=== PATIENT | female | born 1970 | race Caucasian/White ===

== ENCOUNTER 2017-05-31 14:35 | Emergency (ER) | payer OTHER ==
[~2017-05-31] VITALS: Ht 165.1 cm; Wt 73.7 kg
[2017-05-31] MEDS ORDERED: FAMOTIDINE 20 MG/2 ML IVPush ONE (15:00)
[2017-05-31] MEDS ORDERED: DIPHENHYDRAMINE 50 MG/ML, 1ML IVPush ONE (15:00)
[2017-05-31] MEDS ORDERED: methylPREDNISolone SOD SUCC 125 MG/2 ML IVPush ONE (15:00)
[2017-05-31] MEDS ORDERED: SODIUM CHLORIDE FLUSH 10ML SYR IVF ONE (15:00)
[2017-05-31] MEDS ORDERED: ONDANSETRON 2MG/ML, 2ML IVPush ONE (15:00)
[2017-05-31] MEDS ORDERED: methylPREDNISolone SOD SUCC 125 MG/2 ML ONE (15:11)
[2017-05-31] MEDS ORDERED: DIPHENHYDRAMINE 50 MG/ML, 1ML ONE (15:12)
[2017-05-31] MEDS ORDERED: ONDANSETRON 2MG/ML, 2ML ONE (15:12)
[2017-05-31] MEDS ORDERED: FAMOTIDINE 20 MG/2 ML ONE (15:12)
[2017-05-31 16:04] VITALS: BP 141/82
== END 2017-05-31 16:23 | disposition home or self-care (01) ==
LOC: ED 16:01
DX: F41.9 Anxiety disorder, unspecified (principal); R06.00 Dyspnea, unspecified; T43.215A Adverse effect of selective serotonin and norepinephrine reuptake inhibitors, initial encounter; Y92.89 Other specified places as the place of occurrence of the external cause
CPT/HCPCS: 96374; 96375; 99284; J1200; J2405; J2930; S0028

== ENCOUNTER 2017-06-29 11:31 | Inpatient (IN) | payer OTHER ==
[~2017-06-29] VITALS: Ht 165.1 cm; Wt 71.5 kg
[2017-06-29] MEDS ORDERED: ALPR0.25 PO (13:14)
[2017-06-29] MEDS ORDERED: ONDA4TAB10 PO (13:14)
[2017-06-29] MEDS ORDERED: PROP10TA PO (13:14)
[2017-06-29] MEDS ORDERED: SODIUM CHLORIDE FLUSH 10ML SYR IVF ONE (13:30)
[2017-06-29] MEDS ORDERED: ONDANSETRON 2MG/ML, 2ML IVPush ONE (13:30)
[2017-06-29] MEDS ORDERED: SODIUM CHLORIDE 0.9% 1,000ML IVBOLUS ONE (13:30)
[2017-06-29] MEDS ORDERED: FAMOTIDINE 20 MG/2 ML IVP ONE (13:30)
[2017-06-29] MEDS ORDERED: FAMOTIDINE 20 MG/2 ML ONE (13:45)
[2017-06-29] MEDS ORDERED: ONDANSETRON 2MG/ML, 2ML ONE (13:45)
[2017-06-29 14:11] LABS: HEMATOCRIT 47.4 % (34.6-47.8); HEMOGLOBIN 16.7 g/dL (11.7-16.4); WHITE BLOOD COUNT 11.1 x10^3/uL (3.4-10)
[2017-06-29 14:23] LABS: BLOOD UREA NITROGEN 12 mg/dL (7-18)
[2017-06-29 14:26] LABS: ASPARTATE AMINO TRANSFERASE 36 U/L (15-37)
[2017-06-29] MEDS ORDERED: POTASSIUM CHLORIDE 40 MEQ in SODIUM CHLORIDE 0.9% 1,000 ML IV ONE (15:25)
[2017-06-29] MEDS ORDERED: NS + 40MEQ KCL 1,000 ML IV ONE (15:36)
[2017-06-29] MEDS ORDERED: SODIUM CHLORIDE FLUSH 10ML SYR IVF PRN (16:00)
[2017-06-29] MEDS: NS + 20MEQ KCL 1,000 ML IV SCH ×2 (16:10→20:05)
[2017-06-29] MEDS ORDERED: LABETALOL 5MG/ML, 20ML IVPush PRN (16:30)
[2017-06-29] MEDS ORDERED: morphine SULFATE 10 MG/ML, 1ML IVPush PRN (16:30)
[2017-06-29] MEDS ORDERED: HYDROcodone/APAP 5/325 TABLET PO PRN (16:30)
[2017-06-29] MEDS ORDERED: BISACODYL 10 MG SUPP PR PRN (16:30)
[2017-06-29] MEDS ORDERED: ONDANSETRON 2MG/ML, 2ML IVPush PRN (16:30)
[2017-06-29] MEDS ORDERED: DOCUSATE 100 MG CAPSULE PO PRN (16:30)
[2017-06-29] MEDS ORDERED: ACETAMINOPHEN 325 MG TABLET PO PRN (16:30)
[2017-06-29] MEDS: ENOXAPARIN 40 MG/0.4 ML SQ SCH (16:30)
[2017-06-29] MEDS ORDERED: POLYETHYLENE GLYCOL 17 GM PACKET PO PRN (16:30)
[2017-06-29] MEDS: POTASSIUM CHLORIDE 20 MEQ PACKET PO SCH ×2 (17:00→18:31)
[2017-06-29 17:30] VITALS: BP 146/86
[2017-06-29 19:19] VITALS: BP 137/84
[2017-06-29] MEDS: PROMETHAZINE 25 MG/ML, 1ML IM PRN ×2 (19:38→23:36)
[2017-06-30] MEDS ORDERED: DIPHENHYDRAMINE 25 MG CAPSULE PO PRN (00:30)
[2017-06-30 01:20] VITALS: BP 133/76
[2017-06-30] MEDS: NS + 20MEQ KCL 1,000 ML IV SCH (02:46)
[2017-06-30 04:48] LABS: HEMATOCRIT 42.2 % (34.6-47.8); HEMOGLOBIN 14.7 g/dL (11.7-16.4); WHITE BLOOD COUNT 9.9 x10^3/uL (3.4-10)
[2017-06-30 04:55] LABS: BLOOD UREA NITROGEN 7 mg/dL (7-18)
[2017-06-30 05:00] LABS: ASPARTATE AMINO TRANSFERASE 43 U/L (15-37)
[2017-06-30 07:59] VITALS: BP 150/74
[2017-06-30] MEDS: POTASSIUM CHLORIDE 20 MEQ PACKET PO SCH ×3 (08:57→17:45)
[2017-06-30] MEDS: PROPRANOLOL 10 MG TABLET PO SCH (08:58)
[2017-06-30] MEDS: PROMETHAZINE 25 MG/ML, 1ML IM PRN (13:30)
[2017-06-30 13:42] VITALS: BP 132/85
[2017-06-30] MEDS: ENOXAPARIN 40 MG/0.4 ML SQ SCH (16:30)
[2017-06-30 18:33] VITALS: BP 133/82
[2017-07-01 00:53] VITALS: BP 111/69
[2017-07-01 08:05] VITALS: BP 113/70
[2017-07-01] MEDS: POTASSIUM CHLORIDE 20 MEQ PACKET PO SCH ×2 (08:37→11:57)
[2017-07-01] MEDS: PROPRANOLOL 10 MG TABLET PO SCH (08:38)
[2017-07-01 13:31] VITALS: BP 129/84
== END 2017-07-01 16:15 | disposition home or self-care (01) | DRG 392 ==
LOC: ED 14:44 → EDIP 15:31 → UNDOADMIN 16:08 → 3NE 17:18 → DCLOUNGE 07-01 16:08
PROVIDERS: ADMIT Hospitalist; ATTEND Internal Medicine
DX: A08.4 Viral intestinal infection, unspecified (principal); I11.9 Hypertensive heart disease without heart failure; D75.1 Secondary polycythemia; E87.1 Hypo-osmolality and hyponatremia; E87.6 Hypokalemia; E86.0 Dehydration; Z82.49 Family history of ischemic heart disease and other diseases of the circulatory system; E80.6 Other disorders of bilirubin metabolism; Z88.8 Allergy status to other drugs, medicaments and biological substances; R73.9 Hyperglycemia, unspecified
CPT/HCPCS: 36415; 74020; 80053; 81003; 83690; 85025; 87046; 89055; 96361; 96365; 96375; J2405; J2550; J3480; J7030; Q0163; S0028

== ENCOUNTER 2018-08-06 09:31 | Emergency (ER) | payer OTHER ==
[~2018-08-06] VITALS: Ht 165.1 cm; Wt 77.0 kg
[~2018-08-06 09:31] MED LIST: ALPR0.25 PO; ONDA4TAB10 PO; PROP10TA PO
[2018-08-06] MEDS ORDERED: MAALOX/HYOSCYAMINE/LIDOCAINE 45 ML BTL PO ONE (10:30)
--- NOTE | 2018-08-06 10:30 | NUR ---
PT C/O EPIGASTRIC ABD PAIN FOR 4 DAYS WITH N/V. PT REPORTS BEING A DRINKER AND DRINKING HEAVILY OF LATE.
[2018-08-06] MEDS ORDERED: MAALOX/HYOSCYAMINE/LIDOCAINE 45 ML BTL ONE (10:42)
[2018-08-06 11:25] LABS: BASOPHILS # (AUTO) 0.01 x10^3/uL (0-0.1); BASOPHILS % (AUTO) 1 % (0-1); EOSINOPHILS # (AUTO) 0.11 x10^3/uL (0-0.4); EOSINOPHILS % (AUTO) 4 % (1-7); LYMPHOCYTES # (AUTO) 1.18 x10^3/uL (1-3.4); LYMPHOCYTES % (AUTO) 38 % (22-44); MD NO; MEAN CORPUSCULAR HEMOGLOBIN 30.3 pg (27.0-34.8); MEAN CORPUSCULAR HGB CONC 34.1 g/dL (32.4-35.8); MEAN CORPUSCULAR VOLUME 88.9 fL (80-100); MEAN PLATELET VOLUME 8.5 fL (7.4-10.4); MONOCYTES # (AUTO) 0.24 x10^3/uL (0.2-0.8); MONOCYTES % (AUTO) 8 % (2-9); NEUTROPHILS # (AUTO) 1.57 x10^3/uL (1.8-6.8); NEUTROPHILS % (AUTO) 50 % (42-75); PLATELET COUNT 149 x10^3/uL (130-400); RED BLOOD COUNT 5.07 x10^6/uL (3.82-5.3); RED CELL DISTRIBUTION WIDTH 13.6 % (9.6-15.2)
[2018-08-06 11:29] LABS: ALBUMIN 3.8 g/dL (3.4-5.0); ANION GAP 8 mmol/L (5-15); CALCIUM 8.2 mg/dL (8.5-10.1); CHLORIDE 105 mmol/L (98-107)
[2018-08-06 11:34] LABS: ALANINE AMINOTRANSFERASE 112 U/L (12-78); ALKALINE PHOSPHATASE 83 U/L (45-117); BILIRUBIN,TOTAL 0.6 mg/dL (0.2-1.0); TOTAL PROTEIN 7.6 g/dL (6.4-8.2)
--- NOTE | 2018-08-06 11:44 | NUR ---
UA COLLECTED AND SENT TO THE LAB.
[2018-08-06 11:49] LABS: MICROSCOPIC NOT IND
[2018-08-06 11:56] LABS: CULTURE INDICATED? NO
[2018-08-06 13:14] VITALS: BP 145/92
== END 2018-08-06 13:17 | disposition home or self-care (01) ==
LOC: ED 13:10
DX: K29.20 Alcoholic gastritis without bleeding (principal); R94.5 Abnormal results of liver function studies; F32.9 Major depressive disorder, single episode, unspecified; F41.9 Anxiety disorder, unspecified; Z90.710 Acquired absence of both cervix and uterus
CPT/HCPCS: 36415; 74021; 76700; 80053; 81003; 83690; 85025; 93005; 99284

== ENCOUNTER → 2020-04-26 | Outpatient (CLI) | payer OTHER ==
[~2020-04-26] MED LIST changes: +ALPR0.5T7 PO; +ATOR40TA78 PO; +CEFD300C37 PO; +DOXE10CA PO; +FLUO20CA23 PO; +FLUO40CA2 PO; +GEMF600T8 PO; +MULT-658 PO; +ONDA4TAB13 SL; +ONDA4TAB7 PO; +OXYC5TAB3 PO; -PROP10TA PO; +PROP10TA16 PO; +PROP20TA PO
[2020-04-26 15:49] LABS: BASOPHILS # (AUTO) 0.01 x10^3/uL (0-0.1); BASOPHILS % (AUTO) 0 % (0-1); EOSINOPHILS # (AUTO) 0.03 x10^3/uL (0-0.4); EOSINOPHILS % (AUTO) 1 % (1-7); LYMPHOCYTES # (AUTO) 1.51 x10^3/uL (1-3.4); LYMPHOCYTES % (AUTO) 26 % (22-44); MD NO; MEAN CORPUSCULAR HEMOGLOBIN 27.6 pg (27.0-34.8); MEAN CORPUSCULAR HGB CONC 32.6 g/dL (32.4-35.8); MEAN CORPUSCULAR VOLUME 84.7 fL (80-100); MEAN PLATELET VOLUME 9.3 fL (7.4-10.4); MONOCYTES % (AUTO) 5 % (2-9); NEUTROPHILS # (AUTO) 3.88 x10^3/uL (1.8-6.8); NEUTROPHILS % (AUTO) 68 % (42-75); PLATELET COUNT 199 x10^3/uL (130-400); RED BLOOD COUNT 4.73 x10^6/uL (3.82-5.3); RED CELL DISTRIBUTION WIDTH 13.1 % (9.6-15.2)
[2020-04-26 15:59] LABS: ALBUMIN 3.7 g/dL (3.4-5.0); ANION GAP 7 mmol/L (5-15); CHLORIDE 105 mmol/L (98-107)
[2020-04-26 16:03] LABS: ALANINE AMINOTRANSFERASE 20 U/L (12-78); ALKALINE PHOSPHATASE 63 U/L (45-117); BILIRUBIN,TOTAL 0.7 mg/dL (0.2-1.0); CREATININE 0.77 mg/dL (0.55-1.02); TOTAL PROTEIN 7.2 g/dL (6.4-8.2)
[2020-04-26 16:26] LABS: INTERNATIONAL NORMALIZED RATIO 0.97 (0.93-1.1)
== END | disposition home or self-care (01) ==
LOC: STAR 14:33
PROVIDERS: ATTEND Obstetrics & Gynecology
DX: Z01.818 Encounter for other preprocedural examination (principal); Z20.828 Contact with and (suspected) exposure to other viral communicable diseases; R19.09 Other intra-abdominal and pelvic swelling, mass and lump; R10.9 Unspecified abdominal pain
CPT/HCPCS: 36415; 71046; 80053; 85025; 85610; 85730; 86304; 87635; 93005

== ENCOUNTER 2020-04-30 05:44 | Day surgery (SDC) | payer OTHER ==
[~2020-04-30] VITALS: Ht 165.1 cm; Wt 67.6 kg
[2020-04-30] MEDS ORDERED: LACTATED RINGERS 1,000 ML IV SCH (06:24)
[2020-04-30 06:26] VITALS: BP 144/89
[2020-04-30] MEDS ORDERED: CEFOTETAN PMX 2GM/50ML 50 ML IV ONE (06:30)
[2020-04-30] MEDS ORDERED: CHLORHEXIDINE 15 ML UDC MM ONE (06:30)
[2020-04-30] MEDS ORDERED: MIDAZOLAM 1 MG/ML, 2ML ONE (06:42)
[2020-04-30] MEDS ORDERED: FENTANYL PF 250 MCG/5ML ONE (06:42)
[2020-04-30] MEDS ORDERED: BUPIVACAINE/PF 0.25% ONE (06:58)
[2020-04-30] MEDS ORDERED: EPINEPHRINE 1 MG/ML, 1ML ONE (06:58)
[2020-04-30] MEDS ORDERED: SCOPOLAMINE 1MG PATCH TD STA (07:06)
[2020-04-30] MEDS ORDERED: ROCURONIUM 10MG/ML,5ML ONE (07:35)
[2020-04-30] MEDS ORDERED: KETOROLAC 30 MG/1 ML ONE (07:35)
[2020-04-30] MEDS ORDERED: METOCLOPRAMIDE 5 MG/ML, 2ML ONE (07:35)
[2020-04-30] MEDS ORDERED: CEFAZOLIN 1,000 MG ONE (08:47)
[2020-04-30] MEDS ORDERED: NEOSTIGMINE 1 MG/ML, 10ML ONE (08:47)
[2020-04-30] MEDS ORDERED: GLYCOPYRROLATE 0.2MG/1ML, 5ML ONE (08:47)
[2020-04-30] MEDS ORDERED: ONDANSETRON 2MG/ML, 2ML ONE (08:47)
[2020-04-30] MEDS ORDERED: PROPOFOL 10 MG/ML, 20ML ONE (08:47)
[2020-04-30] MEDS ORDERED: DEXAMETHASONE 4 MG/ML, 1ML ONE (08:47)
[2020-04-30] MEDS ORDERED: SUCCINYLCHOLINE 20 MG/ML, 10ML ONE (08:47)
[2020-04-30] MEDS ORDERED: LORazepam 2 MG/ML, 1ML IVPush PRN (09:30)
[2020-04-30] MEDS ORDERED: HYDROmorphone 1 MG/ML, 1ML INJ IVPush PRN (09:30)
[2020-04-30] MEDS ORDERED: ACETAMINOPHEN 325 MG TABLET PO PRN (09:30)
[2020-04-30] MEDS ORDERED: METHOCARBAMOL 1,000 MG in DEXTROSE 5% 100 ML IV PRN (09:30)
[2020-04-30] MEDS ORDERED: EPHEDRINE 50 MG/ML, 1ML IVPush PRN (09:30)
[2020-04-30] MEDS ORDERED: PROMETHAZINE 12.5 MG SUPP PR PRN (09:30)
[2020-04-30] MEDS ORDERED: MEPERIDINE/PF 25MG/0.5ML IVPush PRN (09:30)
[2020-04-30] MEDS ORDERED: LABETALOL 5MG/ML, 20ML IV PRN (09:30)
[2020-04-30] MEDS ORDERED: DIPHENHYDRAMINE 50 MG/ML, 1ML IVPush PRN (09:30)
[2020-04-30] MEDS ORDERED: hydrALAzine 20 MG/ML, 1ML IV PRN (09:30)
[2020-04-30] MEDS ORDERED: OXYcodone 5 MG/5 ML ORAL.SOL UDC PO PRN (09:30)
[2020-04-30] MEDS ORDERED: FENTANYL PF 100 MCG/2ML IV PRN (09:30)
[2020-04-30] MEDS ORDERED: PROMETHAZINE 25 MG/ML, 1ML IVPush PRN (09:30)
== END 2020-04-30 13:05 | disposition home or self-care (01) ==
LOC: OUT 05:44
PROVIDERS: ATTEND Obstetrics & Gynecology
DX: D27.0 Benign neoplasm of right ovary (principal); D20.0 Benign neoplasm of soft tissue of retroperitoneum; N83.01 Follicular cyst of right ovary; N83.8 Other noninflammatory disorders of ovary, fallopian tube and broad ligament; N73.6 Female pelvic peritoneal adhesions (postinfective); I10 Essential (primary) hypertension; F41.9 Anxiety disorder, unspecified; G47.00 Insomnia, unspecified; Z79.899 Other long term (current) drug therapy; Z88.8 Allergy status to other drugs, medicaments and biological substances; Z90.710 Acquired absence of both cervix and uterus
CPT/HCPCS: 36415; 58661; 58662; 86850; 86900; 86923; 88305; J0171; J0330; J1100; J1885; J2250; J2405; J2704; J2710; J2765; J3010; J3490; J7120; S2900; J0690

== ENCOUNTER 2020-06-20 11:32 | Emergency (ER) | payer OTHER ==
[~2020-06-20] VITALS: Ht 165.1 cm; Wt 68.4 kg
[2020-06-20 11:36] VITALS: BP_DIAS 85
[2020-06-20 12:16] LABS: BASOPHILS % (AUTO) 0 % (0-1); EOSINOPHILS % (AUTO) 0 % (1-7); LYMPHOCYTES % (AUTO) 21 % (22-44); MEAN CORPUSCULAR HEMOGLOBIN 29.7 pg (27.0-34.8); MEAN PLATELET VOLUME 8.5 fL (7.4-10.4); MONOCYTES % (AUTO) 9 % (2-9); NEUTROPHILS % (AUTO) 69 % (42-75); PLATELET COUNT 306 x10^3/uL (130-400); RED BLOOD COUNT 5.08 x10^6/uL (3.82-5.3); RED CELL DISTRIBUTION WIDTH 15.4 % (9.6-15.2)
[2020-06-20 12:19] LABS: ALANINE AMINOTRANSFERASE 31 U/L (12-78); ALBUMIN 4.1 g/dL (3.4-5.0); ANION GAP 6 mmol/L (5-15); CALCIUM 8.7 mg/dL (8.5-10.1); CHLORIDE 95 mmol/L (98-107); CREATININE 1.06 mg/dL (0.55-1.02)
[2020-06-20 12:29] LABS: ALKALINE PHOSPHATASE 80 U/L (45-117); BILIRUBIN,TOTAL 1.8 mg/dL (0.2-1.0); TOTAL PROTEIN 8.2 g/dL (6.4-8.2); TROPONIN I < 0.015 ng/mL (0.000-0.045)
[2020-06-20 12:31] LABS: MD NO
[2020-06-20] MEDS ORDERED: LORazepam 0.5MG TABLET ONE (12:41)
[2020-06-20] MEDS ORDERED: LORazepam 0.5MG TABLET PO ONE (13:00)
[2020-06-20 13:05] VITALS: BP_SYST 151
--- NOTE | 2020-06-20 13:06 | NUR ---
Patient given discharge instructions and Rx, they have confirmed that they understand the instructions. Patient ambulatory with steady gait.
== END 2020-06-20 13:08 | disposition home or self-care (01) ==
LOC: ED 12:30
DX: F41.1 Generalized anxiety disorder (principal); R07.9 Chest pain, unspecified; R94.31 Abnormal electrocardiogram [ECG] [EKG]; I10 Essential (primary) hypertension; Z90.710 Acquired absence of both cervix and uterus
CPT/HCPCS: 36415; 71045; 80053; 83735; 84443; 84484; 85025; 93005; 99285